=== PATIENT | male | born 1950 | race Caucasian/White ===

== ENCOUNTER 2022-03-08 12:08 | Inpatient (IN) ==
[2022-03-08] MEDS ORDERED: *HR* FentaNYL (PF) 100 MCG/2 ML VIAL ONE (12:25)
[2022-03-08] MEDS ORDERED: *HR* Heparin 10,000 UNIT/10 ML VIAL ONE (12:26)
[2022-03-08] MEDS ORDERED: Nitroglycerin 1,000 MCG/5 ML VIAL IV ONE (12:26)
[2022-03-08] MEDS ORDERED: *HR* Midazolam HCl 2 MG/2 ML VIAL ONE (12:26)
[2022-03-08] MEDS ORDERED: Heparin 1,000 UNITS/500 mL 500 ML ONE ×2 (12:26→13:15)
[2022-03-08] MEDS ORDERED: Iopamidol - 370 200 ML INFUS..BTL ONE ×2 (12:26→13:35)
[2022-03-08] MEDS ORDERED: 0.9 % Sodium Chloride 1,000 ML ONE (12:26)
[2022-03-08] MEDS ORDERED: *HR* Atropine Sulfate 1 MG/10 ML SYRINGE ONE (12:26)
[2022-03-08] MEDS ORDERED: DOPamine Premix 0 MG/0 ML BAG ONE (12:38)
[2022-03-08] MEDS ORDERED: Amiodarone Premix 150 MG/100 ML BAG IVPB ONE (13:02)
[2022-03-08] MEDS ORDERED: *HR* Norepinephrine 4 MG/4 ML VIAL IVC ONE (13:10)
[2022-03-08] MEDS ORDERED: D5% in Water 250 ML ONE (13:10)
[2022-03-08] MEDS ORDERED: Tirofiban 5 MG/100 mL 5 MG/100 ML VIAL IV ONE (13:17)
[2022-03-08] MEDS ORDERED: Amiodarone Premix 360 MG/200 ML BAG IVC ONE (13:47)
[2022-03-08] MEDS ORDERED: Naloxone 0.4 MG/ML INJ IVP PRN (15:01)
[2022-03-08] MEDS ORDERED: D5% in Water 1,000 ML IVC PRN (15:56)
[2022-03-08] MEDS ORDERED: Dextrose Gel 15 GM/37.5 ML TUBE PO PRN ×2 (15:56)
[2022-03-08] MEDS ORDERED: *HR* Dextrose 50 % in Water (Syg) 50 ML SYRINGE IVP PRN (15:56)
[2022-03-08] MEDS ORDERED: Insulin LISPRO 300 UNITS/3 ML VIAL SUBQ SCH ×2 (16:30→21:00)
[2022-03-08] MEDS ORDERED: Furosemide 40 MG/4 ML VIAL IVP ONE (17:10)
[2022-03-08 17:16] LABS: VBG Ionized Calcium 1.02 mmol/L (1.15-1.35)
[2022-03-08 17:33] LABS: Albumin/Globulin Ratio 1.6 (1.1-2.2); Bilirubin,Indirect 0.3 mg/dL (0.0-1.0); Bilirubin,Total 0.3 mg/dL (0.3-1.0); Calcium 9.1 mg/dL (8.6-10.3); Globulin 2.5 g/dL (2.4-3.5); Magnesium 1.9 mg/dL (1.6-2.6); Phosphorous 1.9 mg/dL (2.7-4.5); Potassium 3.7 mEq/L (3.5-5.1); Total Protein 6.5 g/dL (6.4-8.9)
[2022-03-08 17:37] LABS: Basophils # 0.1 K/mcL (0.0-0.2); Basophils % 0.3 %; Eosinophils % 0.1 %; Hematocrit 49.4 % (37.5-50.1); Hemoglobin 16.5 g/dL (12.9-16.9); Immature Granulocytes % 0.5 % (0-4); Lymphocytes # 0.9 K/mcL (0.6-4.6); Lymphocytes % 4.6 %; Mean Corpuscular HGB Conc 33.4 g/dL (31.6-35.5); Mean Corpuscular Volume 86.8 fL (83.0-100.0); Monocytes # 1.1 K/mcL (0.0-1.3); Monocytes % 5.8 %; Neutrophils # 16.6 K/mcL (1.6-8.9); Platelet Count 316 K/mcL (140-400); Red Blood Count 5.69 M/mcL (4.19-5.50); Red Cell Distribution Width 13.5 % (11.5-14.5); Segmented Neutrophils % 88.7 %; White Blood Count 18.8 K/mcL (4.3-11.1)
[2022-03-08] MEDS ORDERED: *HR* OxyCODONE/APAP 5/325 TABLET PO PRN (17:42)
[2022-03-08] MEDS ORDERED: *HR* Heparin 5,000 UNIT/ML VIAL SQ SCH (18:00)
[2022-03-08] MEDS ORDERED: *HR* Heparin 5,000 UNIT/ML VIAL IVP ONE (19:20)
[2022-03-08] MEDS ORDERED: *HR* Heparin 5,000 UNIT/ML VIAL IVP PRN ×2 (19:20)
[2022-03-08] MEDS: Heparin 25,000UNIT/250ML 1/2NS 25,000 UNIT/250 ML IV.SOLN IVC SCH (20:01)
[2022-03-08 20:39] LABS: INR 0.9; Prothrombin Time 10.4 Seconds (9.4-12.1)
[2022-03-08] MEDS: *HR* HYDROmorphone (PF) 1 MG/ML SYRINGE IVP PRN (20:39)
[2022-03-08] MEDS: Amiodarone Premix 360 MG/200 ML BAG IVC SCH (20:39)
[2022-03-08 20:41] LABS: Activated Partial Thrombo Time 34.2 Seconds (26.0-36.0)
[2022-03-08] MEDS: *HR* Ticagrelor 90 MG TABLET PO SCH (21:07)
[2022-03-08] MEDS: *HR* OxyCODONE/APAP 10/325 TABLET PO PRN (21:52)
[2022-03-09] MEDS: Insulin LISPRO 300 UNITS/3 ML VIAL SUBQ SCH ×4 (00:38→17:15)
[2022-03-09] MEDS: *HR* HYDROmorphone (PF) 1 MG/ML SYRINGE IVP PRN (01:42)
[2022-03-09] MEDS: *HR* OxyCODONE/APAP 10/325 TABLET PO PRN ×3 (01:43→18:30)
[2022-03-09 03:14] LABS: Basophils # 0.1 K/mcL (0.0-0.2); Basophils % 0.2 %; Hematocrit 48.3 % (37.5-50.1); Hemoglobin 15.9 g/dL (12.9-16.9); Immature Granulocytes % 0.5 % (0-4); Lymphocytes # 0.8 K/mcL (0.6-4.6); Lymphocytes % 2.7 %; Mean Corpuscular HGB Conc 32.9 g/dL (31.6-35.5); Mean Corpuscular Hemoglobin 28.8 pg (28.0-33.3); Mean Corpuscular Volume 87.3 fL (83.0-100.0); Mean Platelet Volume 10.2 fL (9.4-12.4); Monocytes # 1.8 K/mcL (0.0-1.3); Monocytes % 6.3 %; Neutrophils # 26.2 K/mcL (1.6-8.9); Platelet Count 380 K/mcL (140-400); Red Blood Count 5.53 M/mcL (4.19-5.50); Red Cell Distribution Width 13.8 % (11.5-14.5); Segmented Neutrophils % 90.3 %
[2022-03-09 03:17] LABS: VBG Ionized Calcium 1.01 mmol/L (1.15-1.35)
[2022-03-09 03:40] LABS: BUN/Creatinine Ratio 26 (6-26); Blood Urea Nitrogen 32 mg/dL (8-23); Calcium 9.3 mg/dL (8.6-10.3); Carbon Dioxide 23 mEq/L (23-29); Chloride 98 mEq/L (98-107); Chol/HDL Ratio 3.2 (0-4.9); Cholesterol 204 mg/dL (< 200); Glucose 149 mg/dL (70-105); HDL Cholesterol 64 mg/dL (40-59); LDL Cholesterol,Calculated 120 mg/dL (< 100); Osmolality,Calculated 288 (280-300); Potassium 4.6 mEq/L (3.5-5.1); Sodium 134 mEq/L (136-145); Triglycerides 102 mg/dL (< 150)
[2022-03-09] MEDS: Gabapentin 400 MG CAPSULE PO SCH ×4 (04:44→20:42)
[2022-03-09 04:47] LABS: Alanine Aminotransferase 230 Units/L (7-52); Albumin 4.3 g/dL (3.5-5.7); Albumin/Globulin Ratio 1.6 (1.1-2.2); Alkaline Phosphatase 60 Units/L (34-104); Aspartate Amino Transferase > 3000 Units/L (13-39); Bilirubin,Direct 0.1 mg/dL (0.0-0.2); Bilirubin,Indirect 0.2 mg/dL (0.0-1.0); Bilirubin,Total 0.3 mg/dL (0.3-1.0); Globulin 2.7 g/dL (2.4-3.5); Magnesium 1.7 mg/dL (1.6-2.6)
[2022-03-09 05:41] LABS: Estimated Average Glucose 111 mg/dl; Hemoglobin A1C 5.5 %
[2022-03-09] MEDS: Aspirin 81 MG TAB.CHEW PO SCH (08:09)
[2022-03-09] MEDS: *HR* Ticagrelor 90 MG TABLET PO SCH ×2 (08:18→20:42)
[2022-03-09] MEDS: Amiodarone Premix 360 MG/200 ML BAG IVC SCH ×2 (08:42→20:42)
[2022-03-09] MEDS: Norepinephrine 4 MG/254 ML IV.SOLN IVC SCH ×2 (09:34→18:32)
[2022-03-09] MEDS ORDERED: 0.9 % Sodium Chloride 1,000 ML ONE (12:45)
[2022-03-09] MEDS ORDERED: *HR* Atropine Sulfate 1 MG/10 ML SYRINGE ONE (12:45)
[2022-03-10 04:21] LABS: VBG Ionized Calcium 1.06 mmol/L (1.15-1.35)
[2022-03-10 04:37] LABS: Basophils % 0.1 %; Hematocrit 42.7 % (37.5-50.1); Hemoglobin 14.5 g/dL (12.9-16.9); Immature Granulocytes % 0.9 % (0-4); Lymphocytes # 1.4 K/mcL (0.6-4.6); Mean Corpuscular Hemoglobin 29.4 pg (28.0-33.3); Mean Corpuscular Volume 86.4 fL (83.0-100.0); Mean Platelet Volume 10.3 fL (9.4-12.4); Monocytes # 2.6 K/mcL (0.0-1.3); Monocytes % 9.1 %; Platelet Count 280 K/mcL (140-400); Red Blood Count 4.94 M/mcL (4.19-5.50); Red Cell Distribution Width 14.3 % (11.5-14.5); Segmented Neutrophils % 84.9 %; White Blood Count 28.7 K/mcL (4.3-11.1)
[2022-03-10 04:40] LABS: Neutrophils # 24.4 K/mcL (1.6-8.9)
[2022-03-10 04:54] LABS: Albumin 3.3 g/dL (3.5-5.7); Albumin/Globulin Ratio 1.2 (1.1-2.2); Bilirubin,Direct 0.1 mg/dL (0.0-0.2); Bilirubin,Indirect 0.3 mg/dL (0.0-1.0); Bilirubin,Total 0.4 mg/dL (0.3-1.0); Calcium 8.8 mg/dL (8.6-10.3); Globulin 2.7 g/dL (2.4-3.5); Magnesium 2.1 mg/dL (1.6-2.6); Phosphorous 3.8 mg/dL (2.7-4.5); Potassium 3.8 mEq/L (3.5-5.1)
[2022-03-10 04:55] LABS: Platelet Estimate Normal (Normal)
[2022-03-10] MEDS: *HR* OxyCODONE/APAP 10/325 TABLET PO PRN ×4 (06:52→22:04)
[2022-03-10] MEDS: Gabapentin 400 MG CAPSULE PO SCH ×3 (08:35→19:50)
[2022-03-10] MEDS: Aspirin 81 MG TAB.CHEW PO SCH (08:35)
[2022-03-10] MEDS: *HR* Ticagrelor 90 MG TABLET PO SCH ×2 (08:37→19:50)
[2022-03-10] MEDS: Norepinephrine 4 MG/254 ML IV.SOLN IVC SCH ×3 (08:38→20:56)
[2022-03-10] MEDS: Insulin LISPRO 300 UNITS/3 ML VIAL SUBQ SCH ×4 (09:02→19:50)
[2022-03-10] MEDS: Amiodarone Premix 360 MG/200 ML BAG IVC SCH ×2 (09:35→19:49)
[2022-03-10] MEDS: *HR* HYDROmorphone (PF) 1 MG/ML SYRINGE IVP PRN (10:53)
[2022-03-10] MEDS ORDERED: Ringers Solution, Lactated 500 ML IVC ONE ×2 (20:34→22:08)
[2022-03-10] MEDS: Piperacillin/Tazobactam 3.375 GM in 0.9 % Sodium Chloride Mini Bag 100 ML IVPB SCH (22:05)
[2022-03-10] MEDS: Benzonatate 100 MG CAPSULE PO PRN (22:05)
[2022-03-10 22:09] LABS: ABG Base Excess -2 mEq/L (-2 to 3); ABG HCO3 18 mEq/L (21-27); ABG Oxygen Saturation 93 % (95-98); ABG PCO2 20 mmHg (35-45); ABG PH 7.55 pH Units (7.32-7.45); ABG PO2 55 mmHg (85-104); ABG TCO2 19 mEq/L (20-26)
[2022-03-10 22:49] LABS: Adenovirus Not Detected (Not Detect); Bordetella Pertussis Not Detected (Not Detect); Chlamydophila pneumoniae Not Detected (Not Detect); Coronavirus 229E Not Detected (Not Detect); Coronavirus HKU1 Not Detected (Not Detect); Coronavirus NL63 Not Detected (Not Detect); Coronavirus OC43 Not Detected (Not Detect); Human Metapneumovirus Not Detected (Not Detect); Human Rhinovirus/Enterovirus DETECTED (Not Detect); Influenza A Subtype 2009 H1 Not Detected (Not Detect); Influenza B Not Detected (Not Detect); Mycoplasma pneumoniae Not Detected (Not Detect); Parainfluenza Virus 1 Not Detected (Not Detect); Parainfluenza Virus 2 Not Detected (Not Detect); Parainfluenza Virus 3 Not Detected (Not Detect); Parainfluenza Virus 4 Not Detected (Not Detect); Respiratory Syncytial Virus Not Detected (Not Detect); SARS-CoV-2 Not Detected (Not Detect)
[2022-03-11] MEDS ORDERED: Piperacillin/Tazobactam 3.375 GM in 0.9 % Sodium Chloride Mini Bag 100 ML IVPB SCH
[2022-03-11] MEDS ORDERED: Furosemide 20 MG/2 ML VIAL IVP ONE ×2 (01:32→07:47)
[2022-03-11] MEDS: Furosemide 20 MG/2 ML VIAL IVP ONE ×2 (01:33→01:38)
[2022-03-11] MEDS ORDERED: GuaiFENesin/Dextromethorphan TABLET PO PRN (01:58)
[2022-03-11] MEDS: *HR* OxyCODONE/APAP 10/325 TABLET PO PRN ×5 (02:07→21:13)
[2022-03-11 04:16] LABS: Basophils # 0.1 K/mcL (0.0-0.2); Basophils % 0.2 %; Eosinophils % 0.1 %; Hematocrit 41.7 % (37.5-50.1); Hemoglobin 13.8 g/dL (12.9-16.9); Lymphocytes % 3.8 %; Mean Corpuscular HGB Conc 33.1 g/dL (31.6-35.5); Mean Corpuscular Hemoglobin 28.5 pg (28.0-33.3); Mean Platelet Volume 10.6 fL (9.4-12.4); Monocytes # 1.6 K/mcL (0.0-1.3); Monocytes % 5.2 %; Neutrophils # 27.3 K/mcL (1.6-8.9); Platelet Count 316 K/mcL (140-400); Red Blood Count 4.85 M/mcL (4.19-5.50); Segmented Neutrophils % 89.7 %
[2022-03-11 04:19] LABS: Lymphocytes # 1.2 K/mcL (0.6-4.6); White Blood Count 30.4 K/mcL (4.3-11.1)
[2022-03-11 04:32] LABS: Albumin 3.3 g/dL (3.5-5.7); Albumin/Globulin Ratio 1.2 (1.1-2.2); Bilirubin,Direct 0.1 mg/dL (0.0-0.2); Bilirubin,Indirect 0.5 mg/dL (0.0-1.0); Bilirubin,Total 0.6 mg/dL (0.3-1.0); Calcium 8.3 mg/dL (8.6-10.3); Globulin 2.7 g/dL (2.4-3.5); Magnesium 1.8 mg/dL (1.6-2.6); Phosphorous 3.6 mg/dL (2.7-4.5); Potassium 3.4 mEq/L (3.5-5.1)
[2022-03-11] MEDS: Norepinephrine 4 MG/254 ML IV.SOLN IVC SCH ×2 (05:20→16:26)
[2022-03-11] MEDS: Piperacillin/Tazobactam 3.375 GM in 0.9 % Sodium Chloride Mini Bag 100 ML IVPB SCH ×3 (05:20→21:12)
[2022-03-11] MEDS: Amiodarone Premix 360 MG/200 ML BAG IVC SCH (06:59)
[2022-03-11] MEDS: Benzonatate 100 MG CAPSULE PO PRN ×2 (07:25→21:13)
[2022-03-11] MEDS: Gabapentin 400 MG CAPSULE PO SCH ×3 (07:26→21:13)
[2022-03-11] MEDS: Aspirin 81 MG TAB.CHEW PO SCH (07:27)
[2022-03-11] MEDS: *HR* Ticagrelor 90 MG TABLET PO SCH ×2 (07:27→21:14)
[2022-03-11] MEDS ORDERED: Potassium Chloride Elixir 20 MEQ/15 ML UDC PO ONE (07:55)
[2022-03-11] MEDS: Dexmedetomidine HCl 400 MCG/100 ML MLS IVC SCH ×2 (08:17→18:40)
[2022-03-11 09:24] LABS: ABG Base Excess -3 mEq/L (-2 to 3); ABG HCO3 18 mEq/L (21-27); ABG Oxygen Saturation 92 % (95-98); ABG PCO2 23 mmHg (35-45); ABG PH 7.51 pH Units (7.32-7.45); ABG PO2 56 mmHg (85-104); ABG TCO2 19 mEq/L (20-26)
[2022-03-11] MEDS: Insulin LISPRO 300 UNITS/3 ML VIAL SUBQ SCH ×4 (09:30→22:12)
[2022-03-11] MEDS: Ipratropium/Albuterol Neb 3 ML IH SCH ×4 (10:59→23:13)
[2022-03-11] MEDS: Azithromycin 500 MG in 0.9 % Sodium Chloride 250 ML IVPB SCH (13:41)
[2022-03-11] MEDS ORDERED: methylPREDNISolone 125 MG/2 ML VIAL IVP ONE (14:00)
[2022-03-11] MEDS: Ipratropium/Albuterol Neb 3 ML IH PRN ×2 (14:17→18:00)
[2022-03-11] MEDS ORDERED: 0.9 % Sodium Chloride 1,000 ML ONE (14:22)
[2022-03-11] MEDS: *HR* Heparin 5,000 UNIT/ML VIAL SQ SCH ×2 (14:44→21:13)
[2022-03-11] MEDS ORDERED: 0.9 % Sodium Chloride 250 ML IVC ONE (14:55)
[2022-03-12] MEDS: Dexmedetomidine HCl 400 MCG/100 ML MLS IVC SCH ×5 (02:50→20:58)
[2022-03-12] MEDS: Norepinephrine 4 MG/254 ML IV.SOLN IVC SCH (03:03)
[2022-03-12 03:35] LABS: VBG Ionized Calcium 1.05 mmol/L (1.15-1.35)
[2022-03-12 03:40] LABS: Basophils % 0.1 %; Hematocrit 36.2 % (37.5-50.1); Immature Granulocytes % 0.7 % (0-4); Lymphocytes # 0.5 K/mcL (0.6-4.6); Lymphocytes % 2.6 %; Mean Corpuscular HGB Conc 33.4 g/dL (31.6-35.5); Mean Corpuscular Hemoglobin 28.7 pg (28.0-33.3); Monocytes # 0.7 K/mcL (0.0-1.3); Monocytes % 4.1 %; Neutrophils # 15.9 K/mcL (1.6-8.9); Platelet Count 275 K/mcL (140-400); Red Blood Count 4.21 M/mcL (4.19-5.50); Red Cell Distribution Width 14.4 % (11.5-14.5); Segmented Neutrophils % 92.5 %; White Blood Count 17.2 K/mcL (4.3-11.1)
[2022-03-12 03:41] LABS: Hemoglobin 12.1 g/dL (12.9-16.9)
[2022-03-12] MEDS: Ipratropium/Albuterol Neb 3 ML IH SCH ×5 (03:55→20:33)
[2022-03-12 04:01] LABS: Albumin/Globulin Ratio 1.1 (1.1-2.2); Bilirubin,Total 0.4 mg/dL (0.3-1.0); Calcium 8.1 mg/dL (8.6-10.3); Globulin 2.8 g/dL (2.4-3.5); Magnesium 2.8 mg/dL (1.6-2.6); Phosphorous 4.2 mg/dL (2.7-4.5); Potassium 4.3 mEq/L (3.5-5.1); Total Protein 5.8 g/dL (6.4-8.9)
[2022-03-12 04:21] LABS: ABG Base Excess -4 mEq/L (-2 to 3); ABG HCO3 17 mEq/L (21-27); ABG Oxygen Saturation 95 % (95-98); ABG PCO2 23 mmHg (35-45); ABG PH 7.48 pH Units (7.32-7.45); ABG PO2 69 mmHg (85-104); ABG TCO2 18 mEq/L (20-26)
[2022-03-12] MEDS: Piperacillin/Tazobactam 3.375 GM in 0.9 % Sodium Chloride Mini Bag 100 ML IVPB SCH ×3 (04:41→20:50)
[2022-03-12] MEDS: *HR* Heparin 5,000 UNIT/ML VIAL SQ SCH ×3 (04:42→20:50)
[2022-03-12] MEDS ORDERED: Calcium Gluconate 1gm/50mL 1 GM/50 ML BAG IVPB PRN (06:19)
[2022-03-12] MEDS: Aspirin 81 MG TAB.CHEW PO SCH (08:19)
[2022-03-12] MEDS: *HR* Ticagrelor 90 MG TABLET PO SCH ×2 (08:20→20:51)
[2022-03-12] MEDS: Insulin LISPRO 300 UNITS/3 ML VIAL SUBQ SCH ×5 (08:30→21:11)
[2022-03-12] MEDS ORDERED: Furosemide 40 MG/4 ML VIAL IVP ONE (09:09)
[2022-03-12] MEDS: Gabapentin 400 MG CAPSULE PO SCH ×3 (09:27→20:51)
[2022-03-12] MEDS ORDERED: *HR* LORazepam 0.5 MG TABLET PO PRN (10:54)
[2022-03-12] MEDS: MethylPREDNISolone 40 MG/ML VIAL IVP SCH ×3 (11:06→23:28)
[2022-03-12] MEDS: hydrOXYzine pamoate 25 MG CAPSULE PO PRN ×2 (11:06→16:49)
[2022-03-12] MEDS: *HR* OxyCODONE/APAP 10/325 TABLET PO PRN (11:40)
[2022-03-12] MEDS: Azithromycin 500 MG in 0.9 % Sodium Chloride 250 ML IVPB SCH (13:31)
[2022-03-12] MEDS: Heparin 25,000UNIT/250ML 1/2NS 25,000 UNIT/250 ML IV.SOLN IVC SCH (19:19)
[2022-03-12] MEDS ORDERED: Furosemide 20 MG/2 ML VIAL IVP ONE (21:59)
[2022-03-13] MEDS: Ipratropium/Albuterol Neb 3 ML IH SCH ×7 (00:08→23:56)
[2022-03-13] MEDS: Norepinephrine 4 MG/254 ML IV.SOLN IVC SCH ×3 (00:30→19:12)
[2022-03-13] MEDS: Dexmedetomidine HCl 400 MCG/100 ML MLS IVC SCH ×5 (00:31→22:57)
[2022-03-13] MEDS ORDERED: Furosemide 40 MG/4 ML VIAL ONE (02:12)
[2022-03-13] MEDS ORDERED: Furosemide 40 MG/4 ML VIAL IVP ONE ×2 (02:49→10:06)
[2022-03-13] MEDS ORDERED: *HR* LORazepam 2 MG/ML VIAL ONE (02:52)
[2022-03-13 03:04] LABS: ABG Base Excess -5 mEq/L (-2 to 3); ABG HCO3 17 mEq/L (21-27); ABG Oxygen Saturation 85 % (95-98); ABG PCO2 23 mmHg (35-45); ABG PH 7.47 pH Units (7.32-7.45); ABG PO2 45 mmHg (85-104); ABG TCO2 18 mEq/L (20-26); Blood Gas Modality CPAP/PS
[2022-03-13] MEDS: FentaNYL (PF) 1,000 MCG/100 ML IV.SOLN IVC SCH ×3 (03:20→21:28)
[2022-03-13] MEDS: Cisatracurium 200 MG in 0.9 % Sodium Chloride 80 ML IVC SCH (04:15)
[2022-03-13 05:07] LABS: ABG Base Excess -6 mEq/L (-2 to 3); ABG HCO3 23 mEq/L (21-27); ABG Oxygen Saturation 89 % (95-98); ABG PCO2 58 mmHg (35-45); ABG PO2 70 mmHg (85-104); ABG TCO2 25 mEq/L (20-26); Blood Gas Modality AF; Blood Gas VT 450 cc
[2022-03-13] MEDS: *HR* Heparin 5,000 UNIT/ML VIAL SQ SCH ×3 (05:16→20:46)
[2022-03-13] MEDS: Piperacillin/Tazobactam 3.375 GM in 0.9 % Sodium Chloride Mini Bag 100 ML IVPB SCH ×3 (05:16→20:46)
[2022-03-13] MEDS: MethylPREDNISolone 40 MG/ML VIAL IVP SCH ×4 (05:16→23:27)
[2022-03-13 05:58] LABS: Basophils % 0.1 %; Hematocrit 37.5 % (37.5-50.1); Hemoglobin 12.3 g/dL (12.9-16.9); Immature Granulocytes % 0.5 % (0-4); Lymphocytes # 0.3 K/mcL (0.6-4.6); Mean Corpuscular HGB Conc 32.8 g/dL (31.6-35.5); Mean Corpuscular Hemoglobin 28.9 pg (28.0-33.3); Mean Platelet Volume 10.9 fL (9.4-12.4); Monocytes # 0.8 K/mcL (0.0-1.3); Monocytes % 5.1 %; Platelet Count 241 K/mcL (140-400); Red Blood Count 4.26 M/mcL (4.19-5.50); Red Cell Distribution Width 14.6 % (11.5-14.5); Segmented Neutrophils % 92.3 %; White Blood Count 15.2 K/mcL (4.3-11.1)
[2022-03-13 06:06] LABS: VBG Ionized Calcium 1.08 mmol/L (1.15-1.35)
[2022-03-13 06:34] LABS: Albumin/Globulin Ratio 1.1 (1.1-2.2); Bilirubin,Total 0.4 mg/dL (0.3-1.0); Calcium 8.1 mg/dL (8.6-10.3); Globulin 2.8 g/dL (2.4-3.5); Magnesium 2.5 mg/dL (1.6-2.6); Phosphorous 7.7 mg/dL (2.7-4.5); Potassium 3.9 mEq/L (3.5-5.1); Total Protein 5.8 g/dL (6.4-8.9)
[2022-03-13] MEDS: *HR* Ticagrelor 90 MG TABLET PO SCH ×2 (08:01→20:46)
[2022-03-13] MEDS: Aspirin 81 MG TAB.CHEW PO SCH (08:01)
[2022-03-13] MEDS: Gabapentin 400 MG CAPSULE PO SCH ×3 (08:01→20:45)
[2022-03-13] MEDS: Insulin LISPRO 300 UNITS/3 ML VIAL SUBQ SCH ×4 (08:03→23:31)
[2022-03-13] MEDS ORDERED: Artificial Tears SOLN 15 ML BOTTLE BOTH EYES PRN (08:06)
[2022-03-13] MEDS: Chlorhexidine Rinse 15 ML MOUTHWASH MM SCH ×2 (08:21→20:46)
[2022-03-13 08:36] LABS: ABG Base Excess 25 mEq/L (-2 to 3); ABG HCO3 52 mEq/L (21-27); ABG Oxygen Saturation 98 % (95-98); ABG PCO2 53 mmHg (35-45); ABG PH 7.59 pH Units (7.32-7.45); ABG PO2 87 mmHg (85-104); ABG TCO2 > 50 mEq/L (20-26); Blood Gas Modality AF; Blood Gas VT 450 cc
[2022-03-13] MEDS ORDERED: Albumin 25% 25gram/100mL 25 GM/100 ML IV.SOLN IVPB SCH (09:00)
[2022-03-13] MEDS: Pantoprazole 40 MG VIAL IVP SCH (09:55)
[2022-03-13] MEDS: Artificial Tears SOLN 15 ML BOTTLE BOTH EYES SCH ×4 (11:25→23:27)
[2022-03-13] MEDS: Azithromycin 500 MG in 0.9 % Sodium Chloride 250 ML IVPB SCH (11:30)
[2022-03-13 11:36] LABS: ABG Base Excess -3 mEq/L (-2 to 3); ABG HCO3 25 mEq/L (21-27); ABG Oxygen Saturation 95 % (95-98); ABG PCO2 58 mmHg (35-45); ABG PH 7.25 pH Units (7.32-7.45); ABG PO2 88 mmHg (85-104); ABG TCO2 27 mEq/L (20-26); Blood Gas Modality AF; Blood Gas VT 450 cc
[2022-03-13] MEDS ORDERED: *HR* Succinylcholine 200 MG/10 ML VIAL IVP ONE (13:54)
[2022-03-13] MEDS ORDERED: *HR* Midazolam HCl 5 MG/5 ML VIAL IVP ONE (13:54)
[2022-03-13] MEDS ORDERED: *HR* Rocuronium Bromide 50 MG/5 ML VIAL IVP ONE (13:54)
[2022-03-13] MEDS ORDERED: *HR* Etomidate 20 MG/10 ML AMPUL IVP ONE (13:54)
[2022-03-14] MEDS: Ipratropium/Albuterol Neb 3 ML IH SCH ×6 (03:33→23:05)
[2022-03-14 03:53] LABS: Basophils % 0.3 %; Hematocrit 35.6 % (37.5-50.1); Hemoglobin 11.4 g/dL (12.9-16.9); Immature Granulocytes % 1.9 % (0-4); Lymphocytes # 0.3 K/mcL (0.6-4.6); Mean Corpuscular Hemoglobin 29.1 pg (28.0-33.3); Mean Corpuscular Volume 90.8 fL (83.0-100.0); Mean Platelet Volume 10.7 fL (9.4-12.4); Monocytes # 0.9 K/mcL (0.0-1.3); Monocytes % 7.1 %; Neutrophils # 11.6 K/mcL (1.6-8.9); Nucleated Red Blood Cells 0.4 /100 WBC (0); Platelet Count 277 K/mcL (140-400); Red Blood Count 3.92 M/mcL (4.19-5.50); Red Cell Distribution Width 15.2 % (11.5-14.5); Segmented Neutrophils % 88.7 %
[2022-03-14 03:55] LABS: VBG Ionized Calcium 1.12 mmol/L (1.15-1.35)
[2022-03-14 04:16] LABS: ABG Base Excess 0 mEq/L (-2 to 3); ABG HCO3 26 mEq/L (21-27); ABG Oxygen Saturation 94 % (95-98); ABG PCO2 47 mmHg (35-45); ABG PH 7.35 pH Units (7.32-7.45); ABG PO2 73 mmHg (85-104); ABG TCO2 28 mEq/L (20-26); Blood Gas Modality AF; Blood Gas VT 450 cc
[2022-03-14] MEDS: Artificial Tears SOLN 15 ML BOTTLE BOTH EYES SCH ×5 (04:31→19:56)
[2022-03-14 04:43] LABS: Albumin 2.9 g/dL (3.5-5.7); Albumin/Globulin Ratio 1.1 (1.1-2.2); Bilirubin,Total 0.3 mg/dL (0.3-1.0); Calcium 8.2 mg/dL (8.6-10.3); Globulin 2.7 g/dL (2.4-3.5); Magnesium 2.7 mg/dL (1.6-2.6); Phosphorous 4.6 mg/dL (2.7-4.5); Potassium 4.4 mEq/L (3.5-5.1); Total Protein 5.6 g/dL (6.4-8.9)
[2022-03-14] MEDS: MethylPREDNISolone 40 MG/ML VIAL IVP SCH ×4 (05:26→23:20)
[2022-03-14] MEDS: *HR* Heparin 5,000 UNIT/ML VIAL SQ SCH ×3 (05:26→19:55)
[2022-03-14] MEDS: Piperacillin/Tazobactam 3.375 GM in 0.9 % Sodium Chloride Mini Bag 100 ML IVPB SCH ×3 (05:27→19:54)
[2022-03-14] MEDS: Insulin LISPRO 300 UNITS/3 ML VIAL SUBQ SCH ×3 (05:36→17:24)
[2022-03-14] MEDS: Cisatracurium 200 MG in 0.9 % Sodium Chloride 80 ML IVC SCH ×2 (05:46→15:13)
[2022-03-14] MEDS: Norepinephrine 4 MG/254 ML IV.SOLN IVC SCH (05:46)
[2022-03-14] MEDS: FentaNYL (PF) 1,000 MCG/100 ML IV.SOLN IVC SCH ×3 (05:51→23:24)
[2022-03-14] MEDS: Chlorhexidine Rinse 15 ML MOUTHWASH MM SCH ×2 (07:39→19:54)
[2022-03-14] MEDS: Pantoprazole 40 MG VIAL IVP SCH (07:45)
[2022-03-14] MEDS: Aspirin 81 MG TAB.CHEW PO SCH (07:46)
[2022-03-14] MEDS: *HR* Ticagrelor 90 MG TABLET PO SCH ×2 (07:46→19:56)
[2022-03-14] MEDS: Gabapentin 400 MG CAPSULE PO SCH ×3 (07:47→19:54)
[2022-03-14] MEDS: Azithromycin 200 MG/5 ML UDC GTUBE SCH (07:47)
[2022-03-14] MEDS: Dexmedetomidine HCl 400 MCG/100 ML MLS IVC SCH ×4 (07:56→23:20)
[2022-03-15] MEDS: Ipratropium/Albuterol Neb 3 ML IH SCH ×6 (03:47→23:21)
[2022-03-15 04:12] LABS: ABG Base Excess 2 mEq/L (-2 to 3); ABG HCO3 27 mEq/L (21-27); ABG Oxygen Saturation 97 % (95-98); ABG PCO2 43 mmHg (35-45); ABG PH 7.41 pH Units (7.32-7.45); ABG PO2 87 mmHg (85-104); ABG TCO2 29 mEq/L (20-26); Blood Gas VT 450 cc
[2022-03-15] MEDS: Artificial Tears SOLN 15 ML BOTTLE BOTH EYES SCH ×7 (04:39→23:10)
[2022-03-15 04:53] LABS: VBG Ionized Calcium 1.15 mmol/L (1.15-1.35)
[2022-03-15 04:57] LABS: Basophils % 0.3 %; Hematocrit 33.5 % (37.5-50.1); Hemoglobin 10.5 g/dL (12.9-16.9); Immature Granulocytes % 3.8 % (0-4); Lymphocytes # 0.3 K/mcL (0.6-4.6); Lymphocytes % 3.9 %; Mean Corpuscular HGB Conc 31.3 g/dL (31.6-35.5); Mean Corpuscular Volume 92.5 fL (83.0-100.0); Mean Platelet Volume 10.7 fL (9.4-12.4); Monocytes # 0.6 K/mcL (0.0-1.3); Monocytes % 7.3 %; Neutrophils # 7.4 K/mcL (1.6-8.9); Nucleated Red Blood Cells 0.2 /100 WBC (0); Platelet Count 221 K/mcL (140-400); Red Blood Count 3.62 M/mcL (4.19-5.50); Red Cell Distribution Width 14.9 % (11.5-14.5); Segmented Neutrophils % 84.7 %; White Blood Count 8.7 K/mcL (4.3-11.1)
[2022-03-15] MEDS: Norepinephrine 4 MG/254 ML IV.SOLN IVC SCH ×3 (04:58→21:50)
[2022-03-15 05:12] LABS: Albumin 2.9 g/dL (3.5-5.7); Albumin/Globulin Ratio 1.3 (1.1-2.2); Bilirubin,Total 0.4 mg/dL (0.3-1.0); Calcium 8.2 mg/dL (8.6-10.3); Globulin 2.3 g/dL (2.4-3.5); Phosphorous 3.7 mg/dL (2.7-4.5); Potassium 4.3 mEq/L (3.5-5.1); Total Protein 5.2 g/dL (6.4-8.9)
[2022-03-15] MEDS: Piperacillin/Tazobactam 3.375 GM in 0.9 % Sodium Chloride Mini Bag 100 ML IVPB SCH ×3 (05:16→21:49)
[2022-03-15] MEDS: *HR* Heparin 5,000 UNIT/ML VIAL SQ SCH ×3 (05:16→21:49)
[2022-03-15] MEDS: MethylPREDNISolone 40 MG/ML VIAL IVP SCH ×3 (05:17→23:16)
[2022-03-15] MEDS: Insulin LISPRO 300 UNITS/3 ML VIAL SUBQ SCH ×5 (05:27→23:11)
[2022-03-15] MEDS ORDERED: Furosemide 40 MG/4 ML VIAL ONE (06:49)
[2022-03-15] MEDS ORDERED: Furosemide 40 MG in 0.9 % Sodium Chloride 50 ML IV ONE (06:54)
[2022-03-15] MEDS ORDERED: Furosemide 40 MG/4 ML VIAL IVP ONE (06:57)
[2022-03-15] MEDS: Cisatracurium 200 MG in 0.9 % Sodium Chloride 80 ML IVC SCH (07:57)
[2022-03-15] MEDS: FentaNYL (PF) 1,000 MCG/100 ML IV.SOLN IVC SCH ×2 (08:02→15:00)
[2022-03-15] MEDS: Gabapentin 400 MG CAPSULE PO SCH ×3 (08:03→21:49)
[2022-03-15] MEDS: Chlorhexidine Rinse 15 ML MOUTHWASH MM SCH ×2 (08:03→21:48)
[2022-03-15] MEDS: Pantoprazole 40 MG VIAL IVP SCH (08:03)
[2022-03-15] MEDS: Aspirin 81 MG TAB.CHEW PO SCH (08:03)
[2022-03-15] MEDS: *HR* Ticagrelor 90 MG TABLET PO SCH ×2 (08:03→21:49)
[2022-03-15] MEDS: Azithromycin 200 MG/5 ML UDC GTUBE SCH (08:05)
[2022-03-15] MEDS: Furosemide 240 MG in 0.9 % Sodium Chloride 96 ML IVC SCH (08:49)
[2022-03-15] MEDS: Dexmedetomidine HCl 400 MCG/100 ML MLS IVC SCH ×3 (09:54→20:02)
[2022-03-16] MEDS: FentaNYL (PF) 1,000 MCG/100 ML IV.SOLN IVC SCH ×4 (00:13→22:04)
[2022-03-16] MEDS: Dexmedetomidine HCl 400 MCG/100 ML MLS IVC SCH ×4 (01:04→20:18)
[2022-03-16] MEDS: Ipratropium/Albuterol Neb 3 ML IH SCH ×6 (04:11→22:59)
[2022-03-16 04:54] LABS: ABG Base Excess 7 mEq/L (-2 to 3); ABG HCO3 31 mEq/L (21-27); ABG Oxygen Saturation 99 % (95-98); ABG PCO2 44 mmHg (35-45); ABG PH 7.46 pH Units (7.32-7.45); ABG PO2 151 mmHg (85-104); ABG TCO2 33 mEq/L (20-26); Blood Gas VT 450 cc
[2022-03-16] MEDS: Piperacillin/Tazobactam 3.375 GM in 0.9 % Sodium Chloride Mini Bag 100 ML IVPB SCH ×3 (05:21→20:18)
[2022-03-16] MEDS: Artificial Tears SOLN 15 ML BOTTLE BOTH EYES SCH ×5 (05:21→20:19)
[2022-03-16] MEDS: *HR* Heparin 5,000 UNIT/ML VIAL SQ SCH ×3 (05:22→20:18)
[2022-03-16] MEDS: Insulin LISPRO 300 UNITS/3 ML VIAL SUBQ SCH ×3 (05:23→17:27)
[2022-03-16 05:27] LABS: Basophils # 0.1 K/mcL (0.0-0.2); Basophils % 0.6 %; Hematocrit 35.2 % (37.5-50.1); Hemoglobin 11.5 g/dL (12.9-16.9); Immature Granulocytes % 6.4 % (0-4); Lymphocytes # 0.3 K/mcL (0.6-4.6); Lymphocytes % 2.4 %; Mean Corpuscular HGB Conc 32.7 g/dL (31.6-35.5); Mean Corpuscular Hemoglobin 29.4 pg (28.0-33.3); Mean Platelet Volume 10.5 fL (9.4-12.4); Monocytes # 1.1 K/mcL (0.0-1.3); Monocytes % 7.8 %; Neutrophils # 11.6 K/mcL (1.6-8.9); Nucleated Red Blood Cells 0.1 /100 WBC (0); Platelet Count 274 K/mcL (140-400); Red Blood Count 3.91 M/mcL (4.19-5.50); Red Cell Distribution Width 14.8 % (11.5-14.5); Segmented Neutrophils % 82.8 %
[2022-03-16] MEDS: Norepinephrine 4 MG/254 ML IV.SOLN IVC SCH ×2 (05:33→14:48)
[2022-03-16 06:06] LABS: Platelet Estimate Normal (Normal)
[2022-03-16 06:07] LABS: Albumin 3.2 g/dL (3.5-5.7); Albumin/Globulin Ratio 1.4 (1.1-2.2); Bilirubin,Total 0.4 mg/dL (0.3-1.0); Calcium 8.6 mg/dL (8.6-10.3); Globulin 2.3 g/dL (2.4-3.5); Magnesium 2.5 mg/dL (1.6-2.6); Total Protein 5.5 g/dL (6.4-8.9)
[2022-03-16] MEDS: MethylPREDNISolone 40 MG/ML VIAL IVP SCH ×2 (08:58→15:28)
[2022-03-16] MEDS: Gabapentin 400 MG CAPSULE PO SCH ×3 (08:58→20:18)
[2022-03-16] MEDS: Aspirin 81 MG TAB.CHEW PO SCH (08:58)
[2022-03-16] MEDS: Pantoprazole 40 MG VIAL IVP SCH (08:58)
[2022-03-16] MEDS: *HR* Ticagrelor 90 MG TABLET PO SCH ×2 (08:58→20:18)
[2022-03-16] MEDS: Chlorhexidine Rinse 15 ML MOUTHWASH MM SCH ×2 (08:59→20:18)
[2022-03-16] MEDS: Furosemide 240 MG in 0.9 % Sodium Chloride 96 ML IVC SCH ×2 (14:41→22:56)
[2022-03-17] MEDS: Artificial Tears SOLN 15 ML BOTTLE BOTH EYES SCH ×6 (00:03→22:01)
[2022-03-17] MEDS: Insulin LISPRO 300 UNITS/3 ML VIAL SUBQ SCH ×4 (00:04→18:41)
[2022-03-17] MEDS: MethylPREDNISolone 40 MG/ML VIAL IVP SCH ×3 (00:08→18:49)
[2022-03-17] MEDS: Dexmedetomidine HCl 400 MCG/100 ML MLS IVC SCH (01:40)
[2022-03-17] MEDS: Cisatracurium 200 MG in 0.9 % Sodium Chloride 80 ML IVC SCH (03:43)
[2022-03-17] MEDS: Norepinephrine 4 MG/254 ML IV.SOLN IVC SCH (03:46)
[2022-03-17] MEDS: Ipratropium/Albuterol Neb 3 ML IH SCH ×6 (03:48→23:40)
[2022-03-17 04:12] LABS: Hematocrit 36.2 % (37.5-50.1); Hemoglobin 11.7 g/dL (12.9-16.9); Mean Corpuscular HGB Conc 32.3 g/dL (31.6-35.5); Mean Corpuscular Hemoglobin 28.9 pg (28.0-33.3); Mean Corpuscular Volume 89.4 fL (83.0-100.0); Mean Platelet Volume 10.4 fL (9.4-12.4); Nucleated Red Blood Cells 0.2 /100 WBC (0); Platelet Count 280 K/mcL (140-400); Red Blood Count 4.05 M/mcL (4.19-5.50); Red Cell Distribution Width 14.9 % (11.5-14.5)
[2022-03-17 04:30] LABS: Calcium 8.5 mg/dL (8.6-10.3); Magnesium 2.6 mg/dL (1.6-2.6); Potassium 3.6 mEq/L (3.5-5.1)
[2022-03-17 04:34] LABS: ABG Base Excess 13 mEq/L (-2 to 3); ABG HCO3 37 mEq/L (21-27); ABG Oxygen Saturation 96 % (95-98); ABG PCO2 42 mmHg (35-45); ABG PH 7.55 pH Units (7.32-7.45); ABG PO2 71 mmHg (85-104); ABG TCO2 38 mEq/L (20-26); Blood Gas VT 450 cc
[2022-03-17 05:20] LABS: Lymphocytes # 1.1 K/mcL (0.6-4.6); Monocytes # 0.7 K/mcL (0.0-1.3); Neutrophils # 9.2 K/mcL (1.6-8.9); Platelet Estimate Normal (Normal)
[2022-03-17] MEDS: *HR* Heparin 5,000 UNIT/ML VIAL SQ SCH ×3 (05:29→22:01)
[2022-03-17] MEDS: FentaNYL (PF) 1,000 MCG/100 ML IV.SOLN IVC SCH (05:29)
[2022-03-17] MEDS: Piperacillin/Tazobactam 3.375 GM in 0.9 % Sodium Chloride Mini Bag 100 ML IVPB SCH ×3 (05:30→22:01)
[2022-03-17] MEDS: *HR* Ticagrelor 90 MG TABLET PO SCH ×2 (08:23→22:01)
[2022-03-17] MEDS: Chlorhexidine Rinse 15 ML MOUTHWASH MM SCH ×2 (08:23→22:01)
[2022-03-17] MEDS: Pantoprazole 40 MG VIAL IVP SCH (08:23)
[2022-03-17] MEDS: Gabapentin 400 MG CAPSULE PO SCH ×3 (08:23→22:01)
[2022-03-17] MEDS: *HR* OxyCODONE/APAP 10/325 TABLET PO PRN ×3 (08:27→18:39)
[2022-03-17] MEDS: Aspirin 81 MG TAB.CHEW PO SCH (08:28)
[2022-03-17] MEDS: Furosemide 40 MG/4 ML VIAL IVP SCH (18:40)
[2022-03-17 22:37] LABS: Calcium 8.9 mg/dL (8.6-10.3); Potassium 3.2 mEq/L (3.5-5.1)
[2022-03-18] MEDS: *HR* OxyCODONE/APAP 10/325 TABLET PO PRN ×2 (03:44→15:30)
[2022-03-18] MEDS: Artificial Tears SOLN 15 ML BOTTLE BOTH EYES SCH ×2 (03:45→08:26)
[2022-03-18] MEDS: Insulin LISPRO 300 UNITS/3 ML VIAL SUBQ SCH ×5 (03:45→21:36)
[2022-03-18 04:19] LABS: Basophils # 0.1 K/mcL (0.0-0.2); Basophils % 0.6 %; Eosinophils % 0.1 %; Hematocrit 42.1 % (37.5-50.1); Immature Granulocytes % 7.2 % (0-4); Lymphocytes # 0.4 K/mcL (0.6-4.6); Lymphocytes % 2.2 %; Mean Corpuscular HGB Conc 32.1 g/dL (31.6-35.5); Mean Corpuscular Hemoglobin 28.4 pg (28.0-33.3); Mean Corpuscular Volume 88.6 fL (83.0-100.0); Mean Platelet Volume 10.6 fL (9.4-12.4); Monocytes # 1.7 K/mcL (0.0-1.3); Monocytes % 8.4 %; Nucleated Red Blood Cells 0.1 /100 WBC (0); Platelet Count 341 K/mcL (140-400); Red Blood Count 4.75 M/mcL (4.19-5.50); Red Cell Distribution Width 14.9 % (11.5-14.5); Segmented Neutrophils % 81.5 %
[2022-03-18 04:23] LABS: VBG Ionized Calcium 1.06 mmol/L (1.15-1.35)
[2022-03-18 04:27] LABS: Hemoglobin 13.5 g/dL (12.9-16.9); White Blood Count 19.6 K/mcL (4.3-11.1)
[2022-03-18 04:40] LABS: Albumin 3.4 g/dL (3.5-5.7); Albumin/Globulin Ratio 1.2 (1.1-2.2); Globulin 2.8 g/dL (2.4-3.5); Magnesium 2.5 mg/dL (1.6-2.6); Phosphorous 3.3 mg/dL (2.7-4.5); Potassium 3.2 mEq/L (3.5-5.1); Total Protein 6.2 g/dL (6.4-8.9)
[2022-03-18] MEDS: Ipratropium/Albuterol Neb 3 ML IH SCH ×5 (04:49→20:22)
[2022-03-18 04:56] LABS: Platelet Estimate Normal (Normal)
[2022-03-18] MEDS: Piperacillin/Tazobactam 3.375 GM in 0.9 % Sodium Chloride Mini Bag 100 ML IVPB SCH (05:02)
[2022-03-18] MEDS: MethylPREDNISolone 40 MG/ML VIAL IVP SCH (05:02)
[2022-03-18] MEDS: *HR* Heparin 5,000 UNIT/ML VIAL SQ SCH ×3 (05:03→21:34)
[2022-03-18] MEDS: Aspirin 81 MG TAB.CHEW PO SCH (08:30)
[2022-03-18] MEDS: Gabapentin 400 MG CAPSULE PO SCH ×3 (08:30→21:34)
[2022-03-18] MEDS: *HR* Ticagrelor 90 MG TABLET PO SCH ×2 (08:30→21:34)
[2022-03-18] MEDS: Furosemide 40 MG/4 ML VIAL IVP SCH (08:32)
[2022-03-18] MEDS: Pantoprazole 40 MG VIAL IVP SCH (08:33)
[2022-03-18] MEDS: Chlorhexidine Rinse 15 ML MOUTHWASH MM SCH (08:37)
[2022-03-18] MEDS: Metoprolol XL (24 HR) Succ 25 MG TAB.ER.24H PO SCH ×2 (10:31→21:33)
[2022-03-19] MEDS: Ipratropium/Albuterol Neb 3 ML IH SCH ×7 (00:17→23:05)
[2022-03-19] MEDS: MethylPREDNISolone 40 MG/ML VIAL IVP SCH (04:03)
[2022-03-19] MEDS: *HR* Heparin 5,000 UNIT/ML VIAL SQ SCH ×3 (07:00→20:41)
[2022-03-19] MEDS: Aspirin 81 MG TAB.CHEW PO SCH (07:52)
[2022-03-19] MEDS: Insulin LISPRO 300 UNITS/3 ML VIAL SUBQ SCH ×4 (07:52→20:34)
[2022-03-19] MEDS: Metoprolol XL (24 HR) Succ 25 MG TAB.ER.24H PO SCH ×2 (07:52→20:42)
[2022-03-19] MEDS: Gabapentin 400 MG CAPSULE PO SCH ×3 (07:52→20:41)
[2022-03-19] MEDS: *HR* Ticagrelor 90 MG TABLET PO SCH ×2 (07:52→20:41)
[2022-03-19] MEDS: *HR* OxyCODONE/APAP 10/325 TABLET PO PRN ×2 (12:25→18:49)
[2022-03-19 14:35] LABS: VBG Ionized Calcium 1.01 mmol/L (1.15-1.35)
[2022-03-19 14:47] LABS: Albumin 3.2 g/dL (3.5-5.7); Albumin/Globulin Ratio 1.3 (1.1-2.2); Bilirubin,Total 0.7 mg/dL (0.3-1.0); Calcium 8.6 mg/dL (8.6-10.3); Globulin 2.4 g/dL (2.4-3.5); Magnesium 2.2 mg/dL (1.6-2.6); Phosphorous 2.9 mg/dL (2.7-4.5); Potassium 3.2 mEq/L (3.5-5.1); Total Protein 5.6 g/dL (6.4-8.9)
[2022-03-19 16:24] LABS: Basophils # 0.1 K/mcL (0.0-0.2); Basophils % 0.3 %; Eosinophils # 0.1 K/mcL (0.0-0.6); Eosinophils % 0.2 %; Hematocrit 40.8 % (37.5-50.1); Hemoglobin 13.2 g/dL (12.9-16.9); Immature Granulocytes % 2.6 % (0-4); Lymphocytes # 0.8 K/mcL (0.6-4.6); Lymphocytes % 3.9 %; Mean Corpuscular HGB Conc 32.4 g/dL (31.6-35.5); Mean Corpuscular Hemoglobin 28.7 pg (28.0-33.3); Mean Corpuscular Volume 88.7 fL (83.0-100.0); Monocytes % 9.8 %; Neutrophils # 16.8 K/mcL (1.6-8.9); Platelet Count 308 K/mcL (140-400); Red Cell Distribution Width 15.1 % (11.5-14.5); Segmented Neutrophils % 83.2 %; White Blood Count 20.2 K/mcL (4.3-11.1)
[2022-03-20] MEDS: Ipratropium/Albuterol Neb 3 ML IH SCH ×4 (04:08→15:35)
[2022-03-20 04:47] LABS: Basophils # 0.1 K/mcL (0.0-0.2); Basophils % 0.4 %; Eosinophils # 0.2 K/mcL (0.0-0.6); Eosinophils % 0.7 %; Hematocrit 41.4 % (37.5-50.1); Hemoglobin 13.3 g/dL (12.9-16.9); Immature Granulocytes % 3.3 % (0-4); Lymphocytes % 4.6 %; Mean Corpuscular HGB Conc 32.1 g/dL (31.6-35.5); Mean Corpuscular Hemoglobin 28.3 pg (28.0-33.3); Mean Corpuscular Volume 88.1 fL (83.0-100.0); Mean Platelet Volume 10.8 fL (9.4-12.4); Monocytes % 9.3 %; Neutrophils # 17.1 K/mcL (1.6-8.9); Platelet Count 304 K/mcL (140-400); Red Cell Distribution Width 14.9 % (11.5-14.5); Segmented Neutrophils % 81.7 %; White Blood Count 20.9 K/mcL (4.3-11.1)
[2022-03-20 05:10] LABS: VBG Ionized Calcium 1.06 mmol/L (1.15-1.35)
[2022-03-20] MEDS: *HR* Heparin 5,000 UNIT/ML VIAL SQ SCH ×2 (05:23→15:05)
[2022-03-20 05:41] LABS: Albumin 3.1 g/dL (3.5-5.7); Albumin/Globulin Ratio 1.2 (1.1-2.2); Bilirubin,Total 0.8 mg/dL (0.3-1.0); Calcium 8.6 mg/dL (8.6-10.3); Globulin 2.6 g/dL (2.4-3.5); Magnesium 2.2 mg/dL (1.6-2.6); Phosphorous 2.9 mg/dL (2.7-4.5); Potassium 3.1 mEq/L (3.5-5.1); Total Protein 5.7 g/dL (6.4-8.9)
[2022-03-20] MEDS: Insulin LISPRO 300 UNITS/3 ML VIAL SUBQ SCH ×2 (08:31→12:44)
[2022-03-20] MEDS ORDERED: Furosemide 20 MG TABLET PO SCH (09:00)
[2022-03-20] MEDS: *HR* Ticagrelor 90 MG TABLET PO SCH (09:18)
[2022-03-20] MEDS: Gabapentin 400 MG CAPSULE PO SCH ×2 (09:18→15:05)
[2022-03-20] MEDS: Aspirin 81 MG TAB.CHEW PO SCH (09:18)
[2022-03-20] MEDS: Metoprolol XL (24 HR) Succ 25 MG TAB.ER.24H PO SCH (09:18)
[2022-03-20] MEDS: *HR* OxyCODONE/APAP 10/325 TABLET PO PRN ×2 (09:24→15:06)
[2022-03-20 12:46] VITALS: BP 110/70; PULSE 83; TEMP 98; O2SAT 94
== END 2022-03-20 16:49 | DRG 270 ==
LOC: SUATTDRO 14:59 → ICNU 14:59 → 2ANU 03-18 19:38
PROVIDERS: ADMIT Internal Medicine; ATTEND Internal Medicine